=== PATIENT | male | born 1965 | race Caucasian/White ===

== ENCOUNTER → 2016-04-15 | Day surgery (SDC) | payer MEDICARE, OTHER ==
[~2016-04-15] VITALS: Ht 182.9 cm; Wt 79.4 kg
[~2016-04-15] MED LIST: ATOR1TAB21 PO; BACT800T5 PO; BUPIVACAINE HCL 0.5% 30 ML VIAL As Ordered ONE; BUPIVACAINE HCL 0.5% 30 ML VIAL XX ONE; CICL8KIT3 EX; CLEO300C2 PO; CLINDAMYCIN 600 MG in APPROPRIATE DILUENT 1 EA IV ONE; FISH1000 PO; FLUT1LOT EX; GLIM2TAB PO; HYDR1CRE TOP; HumaLOG INSULIN (NovoLOG) PER UNIT As Ordered ONE; HumaLOG INSULIN (NovoLOG) PER UNIT SC ONE; LEVA500T PO; LIDOCAINE 1% SDV INJ 30 ML VIAL As Ordered ONE; LIDOCAINE 1% SDV INJ 30 ML VIAL XX ONE; LISI-538 PO; LR 1,000 ML IV SCH; METF500T4 PO; MIDAZOLAM INJ 2 MG/2 ML VIAL (J2250) As Ordered ONE; ONDANSETRON 4MG/2ML VIAL (J2405) As Ordered ONE; ONDANSETRON 4MG/2ML VIAL (J2405) IV PRN; OXYC1TAB23 PO; PERCOCET 5MG/325MG TAB PO PRN; PROPOFOL 200 MG/20 ML VIAL As Ordered ONE; SILV-4 TOP; fentaNYL 100 MCG/2 ML INJECTION (J3010) As Ordered ONE
--- NOTE | 2016-04-15 10:50 | RO ---
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 PROCEDURE: Left hallux partial amputation. SURGEON: Dr. Michael Stover COMPUTER ARCHITECT: None. ANESTHESIA: Monitored anesthesia care. Preoperative injection of 20 mL of 1:1 mixture of 1% lidocaine plain and 1/2% Marcaine plain. ESTIMATED BLOOD LOSS: Minimal. MATERIALS: #3-0 nylon. INJECTABLES: 6 mL 1% lidocaine plain. COMPLICATIONS: None. CONDITION: Stable. SPECIMEN: Left hallux. DESCRIPTION OF PROCEDURE: Clayton Broussard is a 50-year-old male who presents to [facility] with chronic deformity to his left big toe with nonhealing ulceration to this site. He had similar deformity to his right hallux and had partial hallux amputation and has healed well with this. He elected to have the same procedure done to his left side. The patient site and side were identified and marked in the preoperative holding area. Consent was reviewed and obtained. All risks, complications and alternatives to the procedure were explained to the patient in detail. Questions were answered. The patient was brought to the operating room and placed on the operating room in supine position. Monitored anesthesia care was provided by the anesthesia team. Preoperative injection of 20 mL of 1:1 mixture of 1% lidocaine plain and 1/2% Marcaine plain were injected into the left foot. The patient received clindamycin preoperatively. The left foot was prepped and draped in normal sterile fashion. A tourniquet was applied to the left ankle and inflated at 250 mmHg. A racquet type incision was made over the left hallux with #15 blade and carried directly to the bone. Using a sagittal saw, the head of the proximal phalanx was resected and the remaining portion of the toe was disarticulated completely. This was sent for pathology. The site was irrigated with normal saline. Following this, closure was performed in the distal plantar skin proximally. This was sutured with #3-0 nylon. Sterile dressings were applied. Tourniquet was deflated. Patient was brought to the postanesthesia care unit (PACU) with vital signs stable and neurovascular status intact. He will be weight bearing as tolerated to the left foot. He will follow up in the office in two days.
[2016-04-15 11:20] VITALS: BP 162/80
== END | disposition home or self-care (01) ==
LOC: M SDC 08:12
PROVIDERS: ATTEND Podiatrist Foot & Ankle Surgery
DX: M20.32 Hallux varus (acquired), left foot (principal); E11.621 Type 2 diabetes mellitus with foot ulcer; E11.40 Type 2 diabetes mellitus with diabetic neuropathy, unspecified; B35.1 Tinea unguium; I10 Essential (primary) hypertension; E78.00 Pure hypercholesterolemia, unspecified; G89.29 Other chronic pain; M54.2 Cervicalgia; G62.9 Polyneuropathy, unspecified; J45.909 Unspecified asthma, uncomplicated; M12.9 Arthropathy, unspecified; F12.90 Cannabis use, unspecified, uncomplicated; Z88.0 Allergy status to penicillin; Z79.899 Other long term (current) drug therapy
CPT/HCPCS: 28160; 88304; 88311; J2250; J2405; J3010

== ENCOUNTER 2016-05-09 07:32 | Emergency (ER) | payer MEDICARE, OTHER ==
[~2016-05-09 07:32] MED LIST changes: -BUPIVACAINE HCL 0.5% 30 ML VIAL As Ordered ONE; -BUPIVACAINE HCL 0.5% 30 ML VIAL XX ONE; -CLINDAMYCIN 600 MG in APPROPRIATE DILUENT 1 EA IV ONE; -HumaLOG INSULIN (NovoLOG) PER UNIT As Ordered ONE; -HumaLOG INSULIN (NovoLOG) PER UNIT SC ONE; -LIDOCAINE 1% SDV INJ 30 ML VIAL As Ordered ONE; -LIDOCAINE 1% SDV INJ 30 ML VIAL XX ONE; -LR 1,000 ML IV SCH; -MIDAZOLAM INJ 2 MG/2 ML VIAL (J2250) As Ordered ONE; -ONDANSETRON 4MG/2ML VIAL (J2405) As Ordered ONE; -ONDANSETRON 4MG/2ML VIAL (J2405) IV PRN; -PERCOCET 5MG/325MG TAB PO PRN; -PROPOFOL 200 MG/20 ML VIAL As Ordered ONE; -fentaNYL 100 MCG/2 ML INJECTION (J3010) As Ordered ONE
[2016-05-09] MEDS ORDERED: ONDANSETRON 4 MG ORAL DISINTEGRATING TAB (S0181) As Ordered ONE (08:16)
[2016-05-09] MEDS ORDERED: MORPHINE 4 MG/ML 1ML SYRINGE As Ordered ONE ×3 (08:16→09:47)
[2016-05-09 09:40] LABS: INR 0.88
[2016-05-09 10:04] LABS: ANION GAP 12 MEQ/L (8-16); BLOOD UREA NITROGEN 15 MG/DL (7-18); CALCIUM LEVEL 8.9 MG/DL (8.5-10.1); CARBON DIOXIDE LEVEL 24 MEQ/L (21-32); CHLORIDE LEVEL 99 MEQ/L (98-107); CREATININE FOR GFR 1.27 MG/DL (0.70-1.30); GLOMERULAR FILTRATION RATE > 60.0 (>56); GLUCOSE, FASTING 317 MG/DL (70-105); POTASSIUM SERUM 4.1 MEQ/L (3.5-5.1); SODIUM LEVEL 135 MEQ/L (136-145)
[2016-05-09 10:06] LABS: MEAN CORPUSCULAR HEMOGLOBIN 28.6 pg (27.0-33.0); MEAN CORPUSCULAR HGB CONC 33.6 g/dl (32.0-36.5); RED CELL DISTRIBUTION WIDTH 12.9 % (11.5-14.5); WHITE BLOOD COUNT 17.6 K/mm3 (4.0-10.0)
[2016-05-09] MEDS ORDERED: HEPARIN SOD (PORCINE) 5000 UNITS/ML VIAL As Ordered ONE (10:16)
[2016-05-09] MEDS ORDERED: HEPARIN 25,000 UNITS/250 ML D5W BAG (100 UNITS/ML) As Ordered ONE (10:16)
--- NOTE | 2016-05-09 10:33 | EDDOCDS ---
Physician Documentation [facility] Name: Clayton Broussard Age: 51 yrs Sex: Male : 1965 Arrival Date: 05/09/2016 Time: 07:32 Bed 11 Private MD: Linnea Duran Disposition: 05/09 09:59 Critical Care:. pc Disposition: 05/09/16 10:02 Transfer ordered to [facility]. Diagnosis is Arterial embolism and thrombosis - RLE. - Reason for transfer: Higher level of care. - Accepting physician is Dr. Hsu. - Condition is Stable. - Problem is new. - Symptoms have improved. HPI: 08:49 This 51 yrs old Male presents to ER via Walkin/Carried/Asstd with complaints pc of Leg Pain. 08:49 The history is obtained from the patient, the patient's family/friend. He has severe pc PAD with stents in both legs. He had a right common iliac and right SFA stent placed in July 2015. He started to have pain in his right leg last night and is now having severe pain. The patient has experienced similar episodes in the past, several times. The patient has been recently seen by [facility] surgery. Historical: - Allergies: PENICILLINS; - Home Meds: 1. metformin 1,000 mg Oral tab 1 tab 2 times per day 2. Glucophage Oral daily 3. Lipitor Oral nightly 4. patient states he doesn't take his prescribed medications because he forgets "so I just gave up" 5. 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 - Social history: Smoking status: Patient uses tobacco products, light tobacco smoker. No barriers to communication noted, The patient speaks fluent Namibian, Speaks appropriately for age. - : The pt / caregiver states he / she is not on anticoagulants. Home medication list is obtained from the patient. - Hospitalizations: : No recent hospitalization is reported. - Exposure Risk Screening:: None identified. - Immunization history:: All immunizations up-to-date. - Family history: Not pertinent. - Social history:: the patient smokes cigarettes the patient does not drink alcohol. ROS: 08:55 All systems are negative except as listed. pc Exam: 08:55 General Appearance: alert, the patient is in mild distress. pc 08:55 Respiratory: no respiratory distress, normal breath sounds. 08:55 CVS: regular pulse rate, regular rhythm, normal S1 and S2, no murmurs, strong peripheral pulses. 08:55 Abdomen: soft, non-tender, no organomegaly, normal bowel sounds. 08:55 Skin: skin color is normal, warm, dry, a rash is located on the right femoral area, and can be described as pustular eruption on erythematous base . 08:55 Extremities: pulses not palpable in RLE. By Doppler, the femoral is decreased c. left, right popliteal decreased c. left, right DP/TP low rumble only, left loud, brisk. Right foot cool to touch over forefoot. Left great toe amputation incision with sutures in place, dry, clean. 08:55 Neuro: oriented x 3, cranial nerves normal as tested, paraesthesia of RLE . Vital Signs: 07:38 BP 207 / 97; Pulse 83; Resp 20; Temp 98.7(O); Pulse Ox 96% on R/A; Weight 81.65 kg / ck1 180.01 lbs (R); Height 6 ft. 0 in. (182.88 cm) (R); Pain 10/10; 09:08 BP 178 / 86; Pulse 86; Resp 16; Pulse Ox 96% on R/A; Pain 10/10; mlb1 09:46 BP 164 / 74; Pulse 80; Resp 16; Pulse Ox 97% on R/A; Pain 8/10; mlb1 10:26 BP 168 / 77; Pulse 94; Resp 16; Temp 100.0(TE); Pulse Ox 96% on R/A; Pain 8/10; mlb1 07:38 Body Mass Index 24.41 (81.65 kg, 182.88 cm) ck1 MDM: 08:14 Ondansetron ODT Oral Disintegrating Tablet 4 mg PO once ordered. pc 08:14 morphine 4 mg Sub-Q once ordered. pc 08:14 IV Saline Lock ordered. pc 08:38 CBC Ordered. EDMS 08:38 MED Profile Ordered. EDMS 08:58 Differential Diagnosis: arterial occlusion RLE. Plan: analgesia, transfer to [facility]. pc 09:01 [facility] Payment Agreement was scanned into [employer] and attached to record. jp5 09:01 Financial registration complete. jp5 09:01 morphine 4 mg IVP every 15 minutes; Document pain score/vitals after each dose (Hold if pc SBP < 90mmHg) x2 ordered. 09:02 Pt & Aptt Ordered. EDMS 09:47 Pt & Aptt Reviewed. pc 09:58 heparin 5000 units IVP once; No Lovenox in past 18hrs. Baseline labs. Max rec. dose pc [id number]. ordered. 09:58 heparin (Thrombolytic Protocol, 12 units/kg/hr)) 57615 units IV at 1000 units/hr once; pc Max. dose 1000units/hr. No Lovenox past 18hrs/ draw labs. ordered. 09:59 Data reviewed: old medical records, vital signs, nurses notes, lab test results. Test pc interpretation: LAB - all labs as ordered have been reviewed, interpreted and considered in the overall management of the clinical presentation;. The patient has been re-examined and re-evaluated. The patient's symptoms have mildly improved after treatment. Physician consultation: Dr. Hsu was contacted at 10:00, regarding patient's condition, and he requests the heparin as ordered and immediate transfer to [facility] ED. Disposition: The historical points, examination findings, and any diagnostic results supporting the provided diagnosis, were discussed with the patient or legal guardian. The decision to transfer to the patient to another facility was explained, based on the need for a required specialist that [facility] does not immediately have available. 10:12 CBC Reviewed. pc 10:12 MED Profile Reviewed. pc 10:15 Physician consultation: Dr. Mathews was contacted at 10:15, regarding patient's pc condition, and he accepts in transfer to [facility] ED. Administered Medications: 08:23 Drug: Ondansetron ODT 4 mg [ondansetron 4 mg disintegrating tablet (1 tabs)] Route: PO; mlb1 08:23 Drug: morphine 4 mg [morphine 4 mg/mL intravenous cartridge (1 mL)] Route: Sub-Q; Site: mlb1 right upper arm; 09:08 Follow up: BP 178 / 86; Pulse 86 bpm; Resp 16 bpm; Pulse Ox 96% RA; Pain 10/10 Adult; mlb1 Response: No significant change. 09:09 Drug: morphine 4 mg [morphine 4 mg/mL intravenous cartridge (1 mL)] Route: IVP; Site: mlb1 right upper arm; 09:46 Follow up: BP 164 / 74; Pulse 80 bpm; Resp 16 bpm; Pulse Ox 97% RA; Pain 8/10 Adult; mlb1 Response: No significant change. 09:50 Drug: morphine 4 mg [morphine 4 mg/mL intravenous cartridge (1 mL)] Route: IVP; Site: mlb1 right upper arm; 10:22 Drug: heparin 5000 units [heparin (porcine) 5,000 unit/mL injection solution (1 mL)] mlb1 {Co-Signature: [email or web address] (Alice Peterson RN).} Route: IVP; Site: right upper arm; 10:22 Drug: heparin (Thrombolytic Protocol, 12 units/kg/hr)) 35510 units [heparin (porcine) mlb1 25,000 unit/250 mL (100 unit/mL) in dextrose 5 % IV] {Co-Signature: torrey (Alice Peterson RN).} Route: IV; Rate: 1000 units/hr; Site: right upper arm; Critical Care Time: 09:59 Critical care time: Bedside Care: 25 minutes, Consultation: 15 minutes, Family pc Intervention: 15 minutes. Total time: 55 minutes Signatures: Dispatcher [employer] Amadou Arellano MD MD pc Barney, Michael B RN RN mlb1 Cande AnneRN RN ck1 Camryn East jp5 Alice Peterson RN jo3 The chart was reviewed and I authenticate all verbal orders and agree with the evaluation and treatment provided.Corrections: (The following items were deleted from the chart) 10:13 08:55 Skin: skin color is normal, warm, dry, pc pc 10:15 09:59 Physician consultation: Dr. Hsu was contacted at 10:00, regarding need to pc come to ED to see patient, and he requests the heparin as ordered and immediate transfer to [facility] ED, pc Attachments: 09:01 [facility] Payment Agreement jp5 MTDD
--- NOTE | 2016-05-09 10:33 | EDDOCDS ---
Nurse's Notes [facility] Name: Clayton Broussard Age: 51 yrs Sex: Male : 1965 Arrival Date: 05/09/2016 Time: 07:32 Bed 11 Private MD: Linnea Duran Diagnosis: Arterial embolism and thrombosis-RLE Presentation: 05/09 07:37 Presenting complaint: Patient states: Worsening pain in right leg since yesterday, no ck1 known injury. Reports having "four stents" in that leg, feels like a knot in right inner thigh. Adult Sepsis Screening: The patient does not have new or worsening altered mentation. Patient has a respiratory rate of greater than or equal to 22 (1 point). Systolic blood pressure is less than or equal to 100 (1 point). Patient has a qSOFA score of 0- Negative Sepsis Screen. Suicide/Homicide risk assessment- the patient denies having any suicidal and/or homicidal ideations and does not present with any other emotional, behavioral or mental health complaints. Status: Patient is not a custodial services manager or dependent. Transition of care: patient was not received from another setting of care. 07:37 Method Of Arrival: Walkin/Carried/Asstd ck1 07:37 Acuity: TREVA Level 3 ck1 Triage Assessment: 07:44 General: Appears in no apparent distress, comfortable, Behavior is appropriate for age, ck1 cooperative. Pain: Location: right leg Pain currently is 10 out of 10 on a pain scale. HIV screening NA for this visit Offered previously. Neurological: Level of Consciousness is awake, alert, obeys commands, Oriented to person, place, time. Respiratory: Respiratory effort is unlabored, Respiratory pattern is regular, symmetrical. Derm: Skin is intact, Skin is pink, warm & dry. Musculoskeletal: Range of motion intact in all extremities. Historical: - Allergies: PENICILLINS; - Home Meds: 1. metformin 1,000 mg Oral tab 1 tab 2 times per day 2. Glucophage Oral daily 3. Lipitor Oral nightly 4. patient states he doesn't take his prescribed medications because he forgets "so I just gave up" 5. 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 - Social history: Smoking status: Patient uses tobacco products, light tobacco smoker. No barriers to communication noted, The patient speaks fluent Pakistani, Speaks appropriately for age. - : The pt / caregiver states he / she is not on anticoagulants. Home medication list is obtained from the patient. - Hospitalizations: : No recent hospitalization is reported. - Exposure Risk Screening:: None identified. - Immunization history:: All immunizations up-to-date. - Family history: Not pertinent. - Social history:: the patient smokes cigarettes the patient does not drink alcohol. Screenin:55 Screening information is obtained from the patient. Fall risk: No risks identified. mlb1 Assistance ADL's: requires no assistance with activities of daily living. Abuse/DV Screen: The patient / caregiver reports he/she is: not in a situation that causes fear, pain or injury. Nutritional screening: No deficits noted. Advance Directives: Currently, there is no health care proxy. There is no active DNR order. There is no living will. home support is adequate. Assessment: 08:40 General: Appears in no apparent distress, Behavior is appropriate for age, cooperative. mlb1 Pain: Location: right leg Pain currently is 10 out of 10 on a pain scale. Cardiovascular: Pulses diminished in right leg and foot obtained with Doppler. 09:46 General: Appears in no apparent distress, Behavior is appropriate for age, cooperative. mlb1 Pain: Location: right leg Pain currently is 8 out of 10 on a pain scale. Neurological: No deficits noted. Respiratory: No deficits noted. 10:27 General: Appears in no apparent distress, Behavior is appropriate for age, cooperative. mlb1 Pain: Location: right leg Pain currently is 8 out of 10 on a pain scale. Neurological: No deficits noted. Respiratory: No deficits noted. Derm: No deficits noted. Vital Signs: 07:38 BP 207 / 97; Pulse 83; Resp 20; Temp 98.7(O); Pulse Ox 96% on R/A; Weight 81.65 kg (R); ck1 Height 6 ft. 0 in. (182.88 cm) (R); Pain 10/10; 09:08 BP 178 / 86; Pulse 86; Resp 16; Pulse Ox 96% on R/A; Pain 10/10; mlb1 09:46 BP 164 / 74; Pulse 80; Resp 16; Pulse Ox 97% on R/A; Pain 8/10; mlb1 10:26 BP 168 / 77; Pulse 94; Resp 16; Temp 100.0(TE); Pulse Ox 96% on R/A; Pain 8/10; mlb1 07:38 Body Mass Index 24.41 (81.65 kg, 182.88 cm) ck1 Vitals: 07:38 Log In Time: May 09, 2016 at 07:30. ck1 ED Course: 07:33 Patient visited by Hailee Carroll. mm15 07:33 Patient moved to Waiting mm15 07:34 Linnea Duran is Private Physician. mm15 07:38 Triage Initiated ck1 07:45 Patient moved to 11 ck1 08:13 Amadou Mason MD is Attending Physician. pc 08:15 Patient visited by Amadou Mason MD. pc 08:42 Patient visited by James Ordaz, RAFFY. mlb1 08:42 Inserted saline lock: 22 gauge in right upper arm. mlb1 08:56 The patient / caregiver is instructed regarding the plan of care and ED course. mlb1 Accompanied by Family Member, Placed in gown. Bed in low position. Call light in reach. Side rails up X2. 09:01 [facility] Payment Agreement was scanned into [employer] and attached to record. jp5 09:46 Patient visited by James Ordaz, RN. mlb1 10:06 No procedures done that require assistance. mlb1 10:33 Patient visited by James Ordaz, RN. mlb1 Administered Medications: 08:23 Drug: Ondansetron ODT 4 mg [ondansetron 4 mg disintegrating tablet (1 tabs)] Route: PO; mlb1 08:23 Drug: morphine 4 mg [morphine 4 mg/mL intravenous cartridge (1 mL)] Route: Sub-Q; Site: b1 right upper arm; 09:08 Follow up: BP 178 / 86; Pulse 86 bpm; Resp 16 bpm; Pulse Ox 96% RA; Pain 10/10 Adult; mlb1 Response: No significant change. 09:09 Drug: morphine 4 mg [morphine 4 mg/mL intravenous cartridge (1 mL)] Route: IVP; Site: [facility] right upper arm; 09:46 Follow up: BP 164 / 74; Pulse 80 bpm; Resp 16 bpm; Pulse Ox 97% RA; Pain 8/10 Adult; mlb1 Response: No significant change. 09:50 Drug: morphine 4 mg [morphine 4 mg/mL intravenous cartridge (1 mL)] Route: IVP; Site: mlb1 right upper arm; 10:22 Drug: heparin 5000 units [heparin (porcine) 5,000 unit/mL injection solution (1 mL)] mlb1 {Co-Signature: torrey (Alice Peterson RN).} Route: IVP; Site: right upper arm; 10:22 Drug: heparin (Thrombolytic Protocol, 12 units/kg/hr)) 72203 units [heparin (porcine) mlb1 25,000 unit/250 mL (100 unit/mL) in dextrose 5 % IV] {Co-Signature: torrey (Alice Peterson RN).} Route: IV; Rate: 1000 units/hr; Site: right upper arm; Order Results: Lab Order: CBC; SPEC'M 05/09/16 09:25 Test: WHITE BLOOD COUNT; Value: 17.6; Range: 4.0-10.0; Abnormal: Above high normal; Units: K/mm3; Status: F Test: RED BLOOD COUNT; Value: 4.71; Range: 4.30-6.10; Units: M/mm3; Status: F Test: HEMOGLOBIN; Value: 13.5; Range: 14.0-18.0; Abnormal: Below low normal; Units: g/dl; Status: F Test: HEMATOCRIT; Value: 40.0; Range: 42.0-52.0; Abnormal: Below low normal; Units: %; Status: F Test: MEAN CORPUSCULAR VOLUME; Value: 85.0; Range: 80.0-96.0; Units: fl; Status: F Test: MEAN CORPUSCULAR HEMOGLOBIN; Value: 28.6; Range: 27.0-33.0; Units: pg; Status: F Test: MEAN CORPUSCULAR HGB CONC; Value: 33.6; Range: 32.0-36.5; Units: g/dl; Status: F Test: RED CELL DISTRIBUTION WIDTH; Value: 12.9; Range: 11.5-14.5; Units: %; Status: F Test: PLATELET COUNT, AUTOMATED; Value: 201; Range: 150-450; Units: k/mm3; Status: F Lab Order: MED Profile; [facility]05/09/16 09:25 Test: GLUCOSE, FASTING; Value: 317; Range: 70-105; Abnormal: Above high normal; Units: MG/DL; Status: F Test: BLOOD UREA NITROGEN; Value: 15; Range: 7-18; Units: MG/DL; Status: F Test: CREATININE FOR GFR; Value: 1.27; Range: 0.70-1.30; Units: MG/DL; Status: F Test: GLOMERULAR FILTRATION RATE; Value: > 60.0; Range: >56; Status: F Test: SODIUM LEVEL; Value: 135; Range: 136-145; Abnormal: Below low normal; Units: MEQ/L; Status: F Test: POTASSIUM SERUM; Value: 4.1; Range: 3.5-5.1; Units: MEQ/L; Status: F Test: CHLORIDE LEVEL; Value: 99; Range: 98-107; Units: MEQ/L; Status: F Test: CARBON DIOXIDE LEVEL; Value: 24; Range: 21-32; Units: MEQ/L; Status: F Test: ANION GAP; Value: 12; Range: 8-16; Units: MEQ/L; Status: F Test: CALCIUM LEVEL; Value: 8.9; Range: 8.5-10.1; Units: MG/DL; Status: F Test Note: ; Units are mL/min/1.73 m2 Chronic Kidney Disease Staging per NKF: Stage I & II GFR >=60 Normal to Mildly Decreased Stage III GFR 30-59 Moderately Decreased Stage IV GFR 15-29 Severely Decreased Stage V GFR <15 Very Little GFR Left ESRD GFR <15 on REPAIR [employer]OR [employer]SEMBLER Lab Order: Pt & Aptt; [facility]05/09/16 09:25 Test: PROTHROMBIN TIME; Value: 12.0; Range: 12.3-14.5; Abnormal: Below low normal; Units: SECONDS; Status: F Test: INR; Value: 0.88; Status: F Test: PARTIAL THROMBOPLASTIN TIME; Value: 29.6; Range: 26.6-37.1; Units: SECONDS; Status: F Test Note: ; THERAPUTIC HUMAN INR VALUES INDICATIONS NORMAL RANGES PROPHYLAXIS/TREATMENT OF: VENOUS THROMBOSIS 2.0-3.0 PULMONARY EMBOLISM 2.0-3.0 PREVENTION OF SYSTEMIC EMBOLISM FROM: TISSUE HEART VALVES 2.0-3.0 ACUTE MYOCARDIAL INFARCTION 2.0-3.0 VALVULAR HEART DISEASE 2.0-3.0 ATRIAL FIBRILLATION 2.0-3.0 MECHANICAL VALVES(HIGH RISK) 2.5-3.5 RECURRENT MYOCARDIAL INFARCTION 2.5-3.5 Outcome: 10:02 ER care complete, transfer ordered by Provider. pc 10:27 Discharge Assessment: Patient awake, alert and oriented x 3. No cognitive and/or mlb1 functional deficits noted. Patient verbalized understanding of disposition instructions. patient administered narcotics - yes. Patient was admitted to the hospital or transferred to another facility. The following High Risk Discharge criteria are identified: None. Transferred to [facility]. by EMS ground [facility] ambulance report to accompanying personnel Marcellus Rodriguez. Transferred Transfer form completed. Condition: stable. No special radiology studies were completed. Property :Personal belongings accompany Pt. 10:33 Patient left the ED. mlb1 Signatures: Amadou Mason MD MD James Ordaz RN RN mlb1 Cande AnneRN RN ck1 Hailee Carroll mm15 Camryn East jp5 Alice Peterson RN jo3 Corrections: (The following items were deleted from the chart) 07:53 07:37 Presenting complaint: Patient states: Worsening pain in right leg since ck1 yesterday, no known injury. Reports having "four stents" in that leg, feels like a knot in right inner thigh ck1 08:04 08:01 Cardiovascular: Pulses mlb1 mlb1 MTDD
--- NOTE | 2016-05-11 11:34 | EDDOCDS ---
Physician Documentation [facility] Name: Clayton Broussard Age: 51 yrs Sex: Male : 1965 Arrival Date: 05/09/2016 Time: 07:32 Bed 11 Private MD: Linnea Duran Disposition: 05/09 09:59 Critical Care:. pc Disposition: 05/09/16 10:02 Transfer ordered to [facility]. Diagnosis is Arterial embolism and thrombosis - RLE. - Reason for transfer: Higher level of care. - Accepting physician is Dr. Hsu. - Condition is Stable. - Problem is new. - Symptoms have improved. HPI: 08:49 This 51 yrs old Male presents to ER via Walkin/Carried/Asstd with complaints pc of Leg Pain. 08:49 The history is obtained from the patient, the patient's family/friend. He has severe pc PAD with stents in both legs. He had a right common iliac and right SFA stent placed in July 2015. He started to have pain in his right leg last night and is now having severe pain. The patient has experienced similar episodes in the past, several times. The patient has been recently seen by [facility] surgery. Historical: - Allergies: PENICILLINS; - Home Meds: 1. metformin 1,000 mg Oral tab 1 tab 2 times per day 2. Glucophage Oral daily 3. Lipitor Oral nightly 4. patient states he doesn't take his prescribed medications because he forgets "so I just gave up" 5. 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 - Social history: Smoking status: Patient uses tobacco products, light tobacco smoker. No barriers to communication noted, The patient speaks fluent Ecuadorean, Speaks appropriately for age. - : The pt / caregiver states he / she is not on anticoagulants. Home medication list is obtained from the patient. - Hospitalizations: : No recent hospitalization is reported. - Exposure Risk Screening:: None identified. - Immunization history:: All immunizations up-to-date. - Family history: Not pertinent. - Social history:: the patient smokes cigarettes the patient does not drink alcohol. ROS: 08:55 All systems are negative except as listed. pc Exam: 08:55 General Appearance: alert, the patient is in mild distress. pc 08:55 Respiratory: no respiratory distress, normal breath sounds. 08:55 CVS: regular pulse rate, regular rhythm, normal S1 and S2, no murmurs, strong peripheral pulses. 08:55 Abdomen: soft, non-tender, no organomegaly, normal bowel sounds. 08:55 Skin: skin color is normal, warm, dry, a rash is located on the right femoral area, and can be described as pustular eruption on erythematous base . 08:55 Extremities: pulses not palpable in RLE. By Doppler, the femoral is decreased c. left, right popliteal decreased c. left, right DP/TP low rumble only, left loud, brisk. Right foot cool to touch over forefoot. Left great toe amputation incision with sutures in place, dry, clean. 08:55 Neuro: oriented x 3, cranial nerves normal as tested, paraesthesia of RLE . Vital Signs: 07:38 BP 207 / 97; Pulse 83; Resp 20; Temp 98.7(O); Pulse Ox 96% on R/A; Weight 81.65 kg / ck1 180.01 lbs (R); Height 6 ft. 0 in. (182.88 cm) (R); Pain 10/10; 09:08 BP 178 / 86; Pulse 86; Resp 16; Pulse Ox 96% on R/A; Pain 10/10; mlb1 09:46 BP 164 / 74; Pulse 80; Resp 16; Pulse Ox 97% on R/A; Pain 8/10; mlb1 10:26 BP 168 / 77; Pulse 94; Resp 16; Temp 100.0(TE); Pulse Ox 96% on R/A; Pain 8/10; mlb1 07:38 Body Mass Index 24.41 (81.65 kg, 182.88 cm) ck1 MDM: 08:14 Ondansetron ODT Oral Disintegrating Tablet 4 mg PO once ordered. pc 08:14 morphine 4 mg Sub-Q once ordered. pc 08:14 IV Saline Lock ordered. pc 08:38 CBC Ordered. EDMS 08:38 MED Profile Ordered. EDMS 08:58 Differential Diagnosis: arterial occlusion RLE. Plan: analgesia, transfer to [facility]. pc 09:01 [facility] Payment Agreement was scanned into [employer] and attached to record. jp5 09:01 Financial registration complete. jp5 09:01 morphine 4 mg IVP every 15 minutes; Document pain score/vitals after each dose (Hold if pc SBP < 90mmHg) x2 ordered. 09:02 Pt & Aptt Ordered. EDMS 09:47 Pt & Aptt Reviewed. pc 09:58 heparin 5000 units IVP once; No Lovenox in past 18hrs. Baseline labs. Max rec. dose pc [id number]. ordered. 09:58 heparin (Thrombolytic Protocol, 12 units/kg/hr)) 38940 units IV at 1000 units/hr once; pc Max. dose 1000units/hr. No Lovenox past 18hrs/ draw labs. ordered. 09:59 Data reviewed: old medical records, vital signs, nurses notes, lab test results. Test pc interpretation: LAB - all labs as ordered have been reviewed, interpreted and considered in the overall management of the clinical presentation;. The patient has been re-examined and re-evaluated. The patient's symptoms have mildly improved after treatment. Physician consultation: Dr. Hsu was contacted at 10:00, regarding patient's condition, and he requests the heparin as ordered and immediate transfer to [facility] ED. Disposition: The historical points, examination findings, and any diagnostic results supporting the provided diagnosis, were discussed with the patient or legal guardian. The decision to transfer to the patient to another facility was explained, based on the need for a required specialist that [facility] does not immediately have available. 10:12 CBC Reviewed. pc 10:12 MED Profile Reviewed. pc 10:15 Physician consultation: Dr. Mathews was contacted at 10:15, regarding patient's pc condition, and he accepts in transfer to [facility] ED. Administered Medications: 08:23 Drug: Ondansetron ODT 4 mg [ondansetron 4 mg disintegrating tablet (1 tabs)] Route: PO; mlb1 08:23 Drug: morphine 4 mg [morphine 4 mg/mL intravenous cartridge (1 mL)] Route: Sub-Q; Site: mlb1 right upper arm; 09:08 Follow up: BP 178 / 86; Pulse 86 bpm; Resp 16 bpm; Pulse Ox 96% RA; Pain 10/10 Adult; mlb1 Response: No significant change. 09:09 Drug: morphine 4 mg [morphine 4 mg/mL intravenous cartridge (1 mL)] Route: IVP; Site: mlb1 right upper arm; 09:46 Follow up: BP 164 / 74; Pulse 80 bpm; Resp 16 bpm; Pulse Ox 97% RA; Pain 8/10 Adult; mlb1 Response: No significant change. 09:50 Drug: morphine 4 mg [morphine 4 mg/mL intravenous cartridge (1 mL)] Route: IVP; Site: mlb1 right upper arm; 10:22 Drug: heparin 5000 units [heparin (porcine) 5,000 unit/mL injection solution (1 mL)] mlb1 {Co-Signature: [email or web address] (Alice Peterson RN).} Route: IVP; Site: right upper arm; 10:22 Drug: heparin (Thrombolytic Protocol, 12 units/kg/hr)) 34560 units [heparin (porcine) mlb1 25,000 unit/250 mL (100 unit/mL) in dextrose 5 % IV] {Co-Signature: torrey (Alice Peterson RN).} Route: IV; Rate: 1000 units/hr; Site: right upper arm; Critical Care Time: 09:59 Critical care time: Bedside Care: 25 minutes, Consultation: 15 minutes, Family pc Intervention: 15 minutes. Total time: 55 minutes Signatures: Dispatcher [employer] Amadou Arellano MD MD pc Barney, Michael B RN RN mlb1 Cande AnneRN RN ck1 Camryn East jp5 Alice Peterson RN jo3 The chart was reviewed and I authenticate all verbal orders and agree with the evaluation and treatment provided.Corrections: (The following items were deleted from the chart) 10:13 08:55 Skin: skin color is normal, warm, dry, pc pc 10:15 09:59 Physician consultation: Dr. Hsu was contacted at 10:00, regarding need to pc come to ED to see patient, and he requests the heparin as ordered and immediate transfer to [facility] ED, pc Attachments: 09:01 [facility] Payment Agreement jp5 Chart Complete MTDD
--- NOTE | 2016-05-11 11:34 | EDDOCDS ---
Physician Documentation [facility] Name: Clayton Broussard Age: 51 yrs Sex: Male : 1965 Arrival Date: 05/09/2016 Time: 07:32 Bed 11 Private MD: Linnea Duran Disposition: 05/09 09:59 Critical Care:. pc Disposition: 05/09/16 10:02 Transfer ordered to [facility]. Diagnosis is Arterial embolism and thrombosis - RLE. - Reason for transfer: Higher level of care. - Accepting physician is Dr. Hsu. - Condition is Stable. - Problem is new. - Symptoms have improved. HPI: 08:49 This 51 yrs old Male presents to ER via Walkin/Carried/Asstd with complaints pc of Leg Pain. 08:49 The history is obtained from the patient, the patient's family/friend. He has severe pc PAD with stents in both legs. He had a right common iliac and right SFA stent placed in July 2015. He started to have pain in his right leg last night and is now having severe pain. The patient has experienced similar episodes in the past, several times. The patient has been recently seen by [facility] surgery. Historical: - Allergies: PENICILLINS; - Home Meds: 1. metformin 1,000 mg Oral tab 1 tab 2 times per day 2. Glucophage Oral daily 3. Lipitor Oral nightly 4. patient states he doesn't take his prescribed medications because he forgets "so I just gave up" 5. 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 - Social history: Smoking status: Patient uses tobacco products, light tobacco smoker. No barriers to communication noted, The patient speaks fluent Venezuelan, Speaks appropriately for age. - : The pt / caregiver states he / she is not on anticoagulants. Home medication list is obtained from the patient. - Hospitalizations: : No recent hospitalization is reported. - Exposure Risk Screening:: None identified. - Immunization history:: All immunizations up-to-date. - Family history: Not pertinent. - Social history:: the patient smokes cigarettes the patient does not drink alcohol. ROS: 08:55 All systems are negative except as listed. pc Exam: 08:55 General Appearance: alert, the patient is in mild distress. pc 08:55 Respiratory: no respiratory distress, normal breath sounds. 08:55 CVS: regular pulse rate, regular rhythm, normal S1 and S2, no murmurs, strong peripheral pulses. 08:55 Abdomen: soft, non-tender, no organomegaly, normal bowel sounds. 08:55 Skin: skin color is normal, warm, dry, a rash is located on the right femoral area, and can be described as pustular eruption on erythematous base . 08:55 Extremities: pulses not palpable in RLE. By Doppler, the femoral is decreased c. left, right popliteal decreased c. left, right DP/TP low rumble only, left loud, brisk. Right foot cool to touch over forefoot. Left great toe amputation incision with sutures in place, dry, clean. 08:55 Neuro: oriented x 3, cranial nerves normal as tested, paraesthesia of RLE . Vital Signs: 07:38 BP 207 / 97; Pulse 83; Resp 20; Temp 98.7(O); Pulse Ox 96% on R/A; Weight 81.65 kg / ck1 180.01 lbs (R); Height 6 ft. 0 in. (182.88 cm) (R); Pain 10/10; 09:08 BP 178 / 86; Pulse 86; Resp 16; Pulse Ox 96% on R/A; Pain 10/10; mlb1 09:46 BP 164 / 74; Pulse 80; Resp 16; Pulse Ox 97% on R/A; Pain 8/10; mlb1 10:26 BP 168 / 77; Pulse 94; Resp 16; Temp 100.0(TE); Pulse Ox 96% on R/A; Pain 8/10; mlb1 07:38 Body Mass Index 24.41 (81.65 kg, 182.88 cm) ck1 MDM: 08:14 Ondansetron ODT Oral Disintegrating Tablet 4 mg PO once ordered. pc 08:14 morphine 4 mg Sub-Q once ordered. pc 08:14 IV Saline Lock ordered. pc 08:38 CBC Ordered. EDMS 08:38 MED Profile Ordered. EDMS 08:58 Differential Diagnosis: arterial occlusion RLE. Plan: analgesia, transfer to [facility]. pc 09:01 [facility] Payment Agreement was scanned into [employer] and attached to record. jp5 09:01 Financial registration complete. jp5 09:01 morphine 4 mg IVP every 15 minutes; Document pain score/vitals after each dose (Hold if pc SBP < 90mmHg) x2 ordered. 09:02 Pt & Aptt Ordered. EDMS 09:47 Pt & Aptt Reviewed. pc 09:58 heparin 5000 units IVP once; No Lovenox in past 18hrs. Baseline labs. Max rec. dose pc [id number]. ordered. 09:58 heparin (Thrombolytic Protocol, 12 units/kg/hr)) 22851 units IV at 1000 units/hr once; pc Max. dose 1000units/hr. No Lovenox past 18hrs/ draw labs. ordered. 09:59 Data reviewed: old medical records, vital signs, nurses notes, lab test results. Test pc interpretation: LAB - all labs as ordered have been reviewed, interpreted and considered in the overall management of the clinical presentation;. The patient has been re-examined and re-evaluated. The patient's symptoms have mildly improved after treatment. Physician consultation: Dr. Hsu was contacted at 10:00, regarding patient's condition, and he requests the heparin as ordered and immediate transfer to [facility] ED. Disposition: The historical points, examination findings, and any diagnostic results supporting the provided diagnosis, were discussed with the patient or legal guardian. The decision to transfer to the patient to another facility was explained, based on the need for a required specialist that [facility] does not immediately have available. 10:12 CBC Reviewed. pc 10:12 MED Profile Reviewed. pc 10:15 Physician consultation: Dr. Mathews was contacted at 10:15, regarding patient's pc condition, and he accepts in transfer to [facility] ED. Administered Medications: 08:23 Drug: Ondansetron ODT 4 mg [ondansetron 4 mg disintegrating tablet (1 tabs)] Route: PO; mlb1 08:23 Drug: morphine 4 mg [morphine 4 mg/mL intravenous cartridge (1 mL)] Route: Sub-Q; Site: mlb1 right upper arm; 09:08 Follow up: BP 178 / 86; Pulse 86 bpm; Resp 16 bpm; Pulse Ox 96% RA; Pain 10/10 Adult; mlb1 Response: No significant change. 09:09 Drug: morphine 4 mg [morphine 4 mg/mL intravenous cartridge (1 mL)] Route: IVP; Site: mlb1 right upper arm; 09:46 Follow up: BP 164 / 74; Pulse 80 bpm; Resp 16 bpm; Pulse Ox 97% RA; Pain 8/10 Adult; mlb1 Response: No significant change. 09:50 Drug: morphine 4 mg [morphine 4 mg/mL intravenous cartridge (1 mL)] Route: IVP; Site: mlb1 right upper arm; 10:22 Drug: heparin 5000 units [heparin (porcine) 5,000 unit/mL injection solution (1 mL)] mlb1 {Co-Signature: [email or web address] (Alice Peterson RN).} Route: IVP; Site: right upper arm; 10:22 Drug: heparin (Thrombolytic Protocol, 12 units/kg/hr)) 87336 units [heparin (porcine) mlb1 25,000 unit/250 mL (100 unit/mL) in dextrose 5 % IV] {Co-Signature: torrey (Alice Peterson RN).} Route: IV; Rate: 1000 units/hr; Site: right upper arm; Critical Care Time: 09:59 Critical care time: Bedside Care: 25 minutes, Consultation: 15 minutes, Family pc Intervention: 15 minutes. Total time: 55 minutes Signatures: Dispatcher [employer] Amadou Arellano MD MD pc Barney, Michael B RN RN mlb1 Cande AnneRN RN ck1 Camryn East jp5 Alice Peterson RN jo3 The chart was reviewed and I authenticate all verbal orders and agree with the evaluation and treatment provided.Corrections: (The following items were deleted from the chart) 10:13 08:55 Skin: skin color is normal, warm, dry, pc pc 10:15 09:59 Physician consultation: Dr. Hus was contacted at 10:00, regarding need to pc come to ED to see patient, and he requests the heparin as ordered and immediate transfer to [facility] ED, pc Attachments: 09:01 [facility] Payment Agreement jp5 Chart Complete MTDD
--- NOTE | 2016-05-11 11:35 | EDDOCDS ---
Nurse's Notes [facility] Name: Clayton Broussard Age: 51 yrs Sex: Male : 1965 Arrival Date: 05/09/2016 Time: 07:32 Bed 11 Private MD: Linnea Duran Diagnosis: Arterial embolism and thrombosis-RLE Presentation: 05/09 07:37 Presenting complaint: Patient states: Worsening pain in right leg since yesterday, no ck1 known injury. Reports having "four stents" in that leg, feels like a knot in right inner thigh. Adult Sepsis Screening: The patient does not have new or worsening altered mentation. Patient has a respiratory rate of greater than or equal to 22 (1 point). Systolic blood pressure is less than or equal to 100 (1 point). Patient has a qSOFA score of 0- Negative Sepsis Screen. Suicide/Homicide risk assessment- the patient denies having any suicidal and/or homicidal ideations and does not present with any other emotional, behavioral or mental health complaints. Status: Patient is not a central service supply distributor or dependent. Transition of care: patient was not received from another setting of care. 07:37 Method Of Arrival: Walkin/Carried/Asstd ck1 07:37 Acuity: TREVA Level 3 ck1 Triage Assessment: 07:44 General: Appears in no apparent distress, comfortable, Behavior is appropriate for age, ck1 cooperative. Pain: Location: right leg Pain currently is 10 out of 10 on a pain scale. HIV screening NA for this visit Offered previously. Neurological: Level of Consciousness is awake, alert, obeys commands, Oriented to person, place, time. Respiratory: Respiratory effort is unlabored, Respiratory pattern is regular, symmetrical. Derm: Skin is intact, Skin is pink, warm & dry. Musculoskeletal: Range of motion intact in all extremities. Historical: - Allergies: PENICILLINS; - Home Meds: 1. metformin 1,000 mg Oral tab 1 tab 2 times per day 2. Glucophage Oral daily 3. Lipitor Oral nightly 4. patient states he doesn't take his prescribed medications because he forgets "so I just gave up" 5. 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 - Social history: Smoking status: Patient uses tobacco products, light tobacco smoker. No barriers to communication noted, The patient speaks fluent Estonian, Speaks appropriately for age. - : The pt / caregiver states he / she is not on anticoagulants. Home medication list is obtained from the patient. - Hospitalizations: : No recent hospitalization is reported. - Exposure Risk Screening:: None identified. - Immunization history:: All immunizations up-to-date. - Family history: Not pertinent. - Social history:: the patient smokes cigarettes the patient does not drink alcohol. Screenin:55 Screening information is obtained from the patient. Fall risk: No risks identified. mlb1 Assistance ADL's: requires no assistance with activities of daily living. Abuse/DV Screen: The patient / caregiver reports he/she is: not in a situation that causes fear, pain or injury. Nutritional screening: No deficits noted. Advance Directives: Currently, there is no health care proxy. There is no active DNR order. There is no living will. home support is adequate. Assessment: 08:40 General: Appears in no apparent distress, Behavior is appropriate for age, cooperative. mlb1 Pain: Location: right leg Pain currently is 10 out of 10 on a pain scale. Cardiovascular: Pulses diminished in right leg and foot obtained with Doppler. 09:46 General: Appears in no apparent distress, Behavior is appropriate for age, cooperative. mlb1 Pain: Location: right leg Pain currently is 8 out of 10 on a pain scale. Neurological: No deficits noted. Respiratory: No deficits noted. 10:27 General: Appears in no apparent distress, Behavior is appropriate for age, cooperative. mlb1 Pain: Location: right leg Pain currently is 8 out of 10 on a pain scale. Neurological: No deficits noted. Respiratory: No deficits noted. Derm: No deficits noted. Vital Signs: 07:38 BP 207 / 97; Pulse 83; Resp 20; Temp 98.7(O); Pulse Ox 96% on R/A; Weight 81.65 kg (R); ck1 Height 6 ft. 0 in. (182.88 cm) (R); Pain 10/10; 09:08 BP 178 / 86; Pulse 86; Resp 16; Pulse Ox 96% on R/A; Pain 10/10; mlb1 09:46 BP 164 / 74; Pulse 80; Resp 16; Pulse Ox 97% on R/A; Pain 8/10; mlb1 10:26 BP 168 / 77; Pulse 94; Resp 16; Temp 100.0(TE); Pulse Ox 96% on R/A; Pain 8/10; mlb1 07:38 Body Mass Index 24.41 (81.65 kg, 182.88 cm) ck1 Vitals: 07:38 Log In Time: May 09, 2016 at 07:30. ck1 ED Course: 07:33 Patient visited by Hailee Carroll. mm15 07:33 Patient moved to Waiting mm15 07:34 Linnea Duran is Private Physician. mm15 07:38 Triage Initiated ck1 07:45 Patient moved to 11 ck1 08:13 Amadou aMson MD is Attending Physician. pc 08:15 Patient visited by Amadou Mason MD. pc 08:42 Patient visited by James Ordaz, RAFFY. mlb1 08:42 Inserted saline lock: 22 gauge in right upper arm. mlb1 08:56 The patient / caregiver is instructed regarding the plan of care and ED course. mlb1 Accompanied by Family Member, Placed in gown. Bed in low position. Call light in reach. Side rails up X2. 09:01 [facility] Payment Agreement was scanned into [employer] [employer] [facility] and attached to record. jp5 09:46 Patient visited by James Odraz, RN. mlb1 10:06 No procedures done that require assistance. mlb1 10:33 Patient visited by James Ordaz, RN. mlb1 Administered Medications: 08:23 Drug: Ondansetron ODT 4 mg [ondansetron 4 mg disintegrating tablet (1 tabs)] Route: PO; mlb1 08:23 Drug: morphine 4 mg [morphine 4 mg/mL intravenous cartridge (1 mL)] Route: Sub-Q; Site: b1 right upper arm; 09:08 Follow up: BP 178 / 86; Pulse 86 bpm; Resp 16 bpm; Pulse Ox 96% RA; Pain 10/10 Adult; mlb1 Response: No significant change. 09:09 Drug: morphine 4 mg [morphine 4 mg/mL intravenous cartridge (1 mL)] Route: IVP; Site: [facility] right upper arm; 09:46 Follow up: BP 164 / 74; Pulse 80 bpm; Resp 16 bpm; Pulse Ox 97% RA; Pain 8/10 Adult; mlb1 Response: No significant change. 09:50 Drug: morphine 4 mg [morphine 4 mg/mL intravenous cartridge (1 mL)] Route: IVP; Site: mlb1 right upper arm; 10:22 Drug: heparin 5000 units [heparin (porcine) 5,000 unit/mL injection solution (1 mL)] mlb1 {Co-Signature: torrey (Alice Peterson RN).} Route: IVP; Site: right upper arm; 10:22 Drug: heparin (Thrombolytic Protocol, 12 units/kg/hr)) 86703 units [heparin (porcine) mlb1 25,000 unit/250 mL (100 unit/mL) in dextrose 5 % IV] {Co-Signature: torrey (Alice Peterson RN).} Route: IV; Rate: 1000 units/hr; Site: right upper arm; Order Results: Lab Order: CBC; SPEC'M 05/09/16 09:25 Test: WHITE BLOOD COUNT; Value: 17.6; Range: 4.0-10.0; Abnormal: Above high normal; Units: K/mm3; Status: F Test: RED BLOOD COUNT; Value: 4.71; Range: 4.30-6.10; Units: M/mm3; Status: F Test: HEMOGLOBIN; Value: 13.5; Range: 14.0-18.0; Abnormal: Below low normal; Units: g/dl; Status: F Test: HEMATOCRIT; Value: 40.0; Range: 42.0-52.0; Abnormal: Below low normal; Units: %; Status: F Test: MEAN CORPUSCULAR VOLUME; Value: 85.0; Range: 80.0-96.0; Units: fl; Status: F Test: MEAN CORPUSCULAR HEMOGLOBIN; Value: 28.6; Range: 27.0-33.0; Units: pg; Status: F Test: MEAN CORPUSCULAR HGB CONC; Value: 33.6; Range: 32.0-36.5; Units: g/dl; Status: F Test: RED CELL DISTRIBUTION WIDTH; Value: 12.9; Range: 11.5-14.5; Units: %; Status: F Test: PLATELET COUNT, AUTOMATED; Value: 201; Range: 150-450; Units: k/mm3; Status: F Lab Order: MED Profile; [facility] 09:25 Test: GLUCOSE, FASTING; Value: 317; Range: 70-105; Abnormal: Above high normal; Units: MG/DL; Status: F Test: BLOOD UREA NITROGEN; Value: 15; Range: 7-18; Units: MG/DL; Status: F Test: CREATININE FOR GFR; Value: 1.27; Range: 0.70-1.30; Units: MG/DL; Status: F Test: GLOMERULAR FILTRATION RATE; Value: > 60.0; Range: >56; Status: F Test: SODIUM LEVEL; Value: 135; Range: 136-145; Abnormal: Below low normal; Units: MEQ/L; Status: F Test: POTASSIUM SERUM; Value: 4.1; Range: 3.5-5.1; Units: MEQ/L; Status: F Test: CHLORIDE LEVEL; Value: 99; Range: 98-107; Units: MEQ/L; Status: F Test: CARBON DIOXIDE LEVEL; Value: 24; Range: 21-32; Units: MEQ/L; Status: F Test: ANION GAP; Value: 12; Range: 8-16; Units: MEQ/L; Status: F Test: CALCIUM LEVEL; Value: 8.9; Range: 8.5-10.1; Units: MG/DL; Status: F Test Note: ; Units are mL/min/1.73 m2 Chronic Kidney Disease Staging per NKF: Stage I & II GFR >=60 Normal to Mildly Decreased Stage III GFR 30-59 Moderately Decreased Stage IV GFR 15-29 Severely Decreased Stage V GFR <15 Very Little GFR Left ESRD GFR <15 on DATA GOVERNANCE CONSULTANT Lab Order: Pt & Aptt; [facility]05/09[facility]16 09:25 Test: PROTHROMBIN TIME; Value: 12.0; Range: 12.3-14.5; Abnormal: Below low normal; Units: SECONDS; Status: F Test: INR; Value: 0.88; Status: F Test: PARTIAL THROMBOPLASTIN TIME; Value: 29.6; Range: 26.6-37.1; Units: SECONDS; Status: F Test Note: ; THERAPUTIC HUMAN INR VALUES INDICATIONS NORMAL RANGES PROPHYLAXIS/TREATMENT OF: VENOUS THROMBOSIS 2.0-3.0 PULMONARY EMBOLISM 2.0-3.0 PREVENTION OF SYSTEMIC EMBOLISM FROM: TISSUE HEART VALVES 2.0-3.0 ACUTE MYOCARDIAL INFARCTION 2.0-3.0 VALVULAR HEART DISEASE 2.0-3.0 ATRIAL FIBRILLATION 2.0-3.0 MECHANICAL VALVES(HIGH RISK) 2.5-3.5 RECURRENT MYOCARDIAL INFARCTION 2.5-3.5 Outcome: 10:02 ER care complete, transfer ordered by Provider. pc 10:27 Discharge Assessment: Patient awake, alert and oriented x 3. No cognitive and/or mlb1 functional deficits noted. Patient verbalized understanding of disposition instructions. patient administered narcotics - yes. Patient was admitted to the hospital or transferred to another facility. The following High Risk Discharge criteria are identified: None. Transferred to [facility]. by EMS ground [facility] ambulance report to accompanying personnel Marcellus Rodriguez. Transferred Transfer form completed. Condition: stable. No special radiology studies were completed. Property :Personal belongings accompany Pt. 10:33 Patient left the ED. mlb1 Signatures: Amadou Mason MD MD James Ordaz RN RN mlb1 Cande AnneRN RN ck1 Hailee Carroll mm15 Camryn East jp5 Alice Peterson RN jo3 Corrections: (The following items were deleted from the chart) 07:53 07:37 Presenting complaint: Patient states: Worsening pain in right leg since ck1 yesterday, no known injury. Reports having "four stents" in that leg, feels like a knot in right inner thigh ck1 08:04 08:01 Cardiovascular: Pulses mlb1 mlb1 Chart Complete MTDD
== END 2016-05-09 10:33 | disposition short-term general hospital (02) ==
LOC: M ED 07:32
DX: I74.3 Embolism and thrombosis of arteries of the lower extremities (principal); E78.00 Pure hypercholesterolemia, unspecified; I10 Essential (primary) hypertension; E11.42 Type 2 diabetes mellitus with diabetic polyneuropathy; I73.9 Peripheral vascular disease, unspecified; F17.210 Nicotine dependence, cigarettes, uncomplicated; Z79.84 Long term (current) use of oral hypoglycemic drugs; Z79.899 Other long term (current) drug therapy; Z88.0 Allergy status to penicillin; Z95.820 Peripheral vascular angioplasty status with implants and grafts

== ENCOUNTER 2018-04-13 14:19 | Inpatient (IN) | payer MEDICARE ==
[~2018-04-13] VITALS: Ht 182.9 cm; Wt 104.6 kg
[~2018-04-13 14:19] MED LIST changes: +LEVA1TAB2 PO; -LEVA500T PO
[2018-04-13] MEDS ORDERED: LANTINJ4 SC (14:41)
[2018-04-13] MEDS ORDERED: PRAV40TA2 PO (14:41)
[2018-04-13] MEDS ORDERED: CLOP75TA2 PO (14:41)
[2018-04-13] MEDS ORDERED: GABA600T4 PO (14:41)
[2018-04-13] MEDS ORDERED: COLA100C5 PO (14:41)
[2018-04-13] MEDS ORDERED: DILUENT IV ONE (15:00)
[2018-04-13] MEDS ORDERED: LevoFLOXacin IV 750 MG in APPROPRIATE DILUENT 1 EA IV ONE (15:00)
[2018-04-13] MEDS ORDERED: ACETAMINOPHEN 325 MG TAB PO ONE (15:00)
[2018-04-13] MEDS ORDERED: NS IV ONE (15:00)
[2018-04-13] MEDS ORDERED: ONDANSETRON 4MG/2ML VIAL (J2405) IV ONE (15:15)
--- NOTE | 2018-04-13 15:17 | REP ---
Portable chest x-ray: Single view. History: Sepsis. Shock. Findings: Sitting chest x-ray shows clear well inflated lungs and sharp pleural angles. Heart is not enlarged. Pulmonary vasculature is not increased. No significant bony abnormality. Impression: No active disease. Electronically Signed by Matthew Cardoso MD 04/13/2018 03:09 P
--- NOTE | 2018-04-13 16:29 | REP ---
Duplex extremity venous ultrasound: Right lower extremity. History: Right lower extremity pain and swelling. History of previous thrombosis. Findings: There is some soft tissue edema. A 3.7 x 1.5 x 3.9 cm lymph node and a 3.3 x 1.5 x 2.3 cm lymph node are seen in the right groin consistent with mild lymphadenopathy. Incidental note is made of occlusion of the right common femoral artery. A right-sided bypass graft is noted to be patent. The deep veins are anechoic and fully compressible from the groin to the popliteal fossa in the right lower extremity. Color flow imaging is homogeneous. Spectral Doppler interrogation demonstrates intact respiratory variation in flow and normal manual augmentation of flow. There is no evidence of deep vein thrombosis. Impression: Soft tissue edema and two hypertrophied right groin lymph nodes. Common femoral artery occlusion - patent arterial bypass graft noted. Otherwise negative right lower extremity duplex venous ultrasound. No evidence of deep vein thrombosis. Electronically Signed by Matthew Cardoso MD 04/13/2018 06:14 P
[2018-04-13] MEDS ORDERED: MORPHINE 4 MG/ML 1ML VIAL/SYRINGE (J2270) IV ONE ×2 (16:45→18:15)
[2018-04-13 17:18] LABS: CENTRAL VEN BASE EXCESS 2.4
[2018-04-13 17:21] LABS: BASO # 0.1 10^3/uL (0.0-0.2); BASO % 0.3 % (0.0-1.0); HEMOGLOBIN 11.3 g/dl (13.5-17.5); LYMPH # 0.5 10^3/uL (1.5-4.5); LYMPH % 1.5 % (24.0-44.0); MEAN CORPUSCULAR HEMOGLOBIN 28.2 pg (27.0-33.0); MEAN CORPUSCULAR HGB CONC 33.2 g/dl (32.0-36.5); MEAN CORPUSCULAR VOLUME 84.8 fl (80.0-96.0); MONO # 1.4 10^3/uL (0.0-0.8); MONO % 3.9 % (0.0-5.0); NEUTROPHILS % 93.2 % (36.0-66.0); PLATELET COUNT, AUTOMATED 295 10^3/uL (150-450); RED BLOOD COUNT 4.01 10^6/uL (4.30-6.10)
[2018-04-13 17:26] LABS: NEUTROPHILS # 34.2 10^3/uL (1.8-7.7); WHITE BLOOD COUNT 36.6 10^3/uL (4.0-10.0)
[2018-04-13 17:38] LABS: INR 1.21; PROTHROMBIN TIME 15.4 SECONDS (12.1-14.4)
[2018-04-13 17:39] LABS: PARTIAL THROMBOPLASTIN TIME 33.2 SECONDS (25.4-37.6)
--- NOTE | 2018-04-13 17:44 | REP ---
PORTABLE CHEST, ONE VIEW: CENTRAL LINE PLACEMENT: COMPARISON: 04/13/2018 The lungs are clear. The heart is normal in size. The pulmonary vasculature is normal in appearance. A central line is present in the left internal jugular vein. IMPRESSION: The patient is status-post central line placement in the left internal jugular vein. Electronically Signed by Fredo Choudhury MD 04/13/2018 05:53 P
[2018-04-13 17:52] LABS: INFLUENZA A AMPLIFICATION NEGATIVE (NEGATIVE); INFLUENZA B AMPLIFICATION NEGATIVE (NEGATIVE)
[2018-04-13 17:58] LABS: ALBUMIN 2.4 GM/DL (3.2-5.2); BILIRUBIN,DIRECT 0.2 MG/DL (0.0-0.2); BILIRUBIN,TOTAL 0.6 MG/DL (0.2-1.0); C REACTIVE PROTEIN QUANTITATIV 30.2 MG/DL (0.00-0.30); CALCIUM LEVEL 7.3 MG/DL (8.5-10.1); CREATININE FOR GFR 3.27 MG/DL (0.70-1.30); GLOMERULAR FILTRATION RATE 21.1 (>56); MB/CK RELATIVE INDEX 0.25 (< OR =4); TOTAL PROTEIN 5.8 GM/DL (6.4-8.2); TROPONIN I 0.02 NG/ML (< 0.10)
[2018-04-13] MEDS ORDERED: FISH1000 PO (18:24)
[2018-04-13] MEDS ORDERED: VITMTA PO (18:25)
[2018-04-13] MEDS ORDERED: CEFEPIME HCL 2 GM in D5W MINI-BAG PLUS 50 ML IV STA (18:58)
--- NOTE | 2018-04-13 19:03 | ECGEPIP ---
Stationary ECG Study [facility] - ED Test Date: 2018-04-13 Pat Name: NISH MCDONALD Department: Room: - Gender: M Bowstring Maker: : 1965 Requested By: MIRTHA CHIN Order Number: [id number] Reading MD: Eric Waite Measurements Intervals [place] Rate: 110 P: -2 MS: 116 QRS: 64 QRSD: 105 T: 26 QT: 327 QTc: 443 Interpretive Statements SINUS TACHYCARDIA WITH SHORT MS INTERVAL POSSIBLE LEFT ATRIAL ENLARGEMENT POSSIBLE RIGHT VENTRICULAR CONDUCTION DELAY ABNORMAL RHYTHM ECG NONSPECIFIC ST [facility] CW 08/24/[address] [facility] Electronically Signed On 04-13-2018 19:02:38 EST by Eric Waite
--- NOTE | 2018-04-13 19:07 | REP ---
Right foot series: Four views: History: Rule out osteomyelitis. No comparison views. Findings: Four views of the right foot demonstrate that the patient is status post transmetatarsal amputations of the distal end of the second, third and fourth metatarsals. The first and fifth toes have been amputated through the proximal phalanges. There is a small bone density distal to the second metatarsal as well. There is soft tissue swelling and irregularity over the forefoot stump. There is a marked soft tissue swelling in the forefoot. No definite soft tissue gas. There is periosteal reaction at the transmetatarsal amputation site of the second digit. Soft tissue swelling is seen along the medial aspect of the ankle as well. Impression: Diffuse marked soft tissue swelling of the forefoot and ankle region. Irregularity of the soft tissues of the forefoot stump. Status post amputation of all five digits of the forefoot as above. No definite acute bony erosive change. No soft tissue gas seen. Electronically Signed by Matthew Cardoso MD 04/13/2018 07:53 P
--- NOTE | 2018-04-13 19:32 | HPE ---
DATE OF ADMISSION: 04/13/2018 This is a 52-year-old male with a past medical history of hypertension, diabetes, hyperlipidemia, history of peripheral artery disease status-post right fem-pop bypass. History of recent TMA 3 weeks ago in [place] who presents to the emergency room with right leg swelling over the last 3 days with subjective feeling of fevers, aches and chills. In the emergency room he was found to have a 35,000 white count and temperature of 102. He was started on sepsis protocol. Patient was also started on IV Levaquin and had a vascular ultrasound done which showed a patent common femoral artery with no DVT. Patient will be admitted for further management. PAST MEDICAL HISTORY: Hypertension, diabetes, hyperlipidemia, history of peripheral artery disease status-post fem-pop bypass of the right leg, history of recent right TMA done 3 weeks ago in [place], chronic kidney disease 3A. ALLERGIES: Penicillin. FAMILY HISTORY: Noncontributory. SOCIAL HISTORY: Patient denies tobacco, alcohol, illicit drugs. MEDICATIONS AT HOME: Plavix 75 mg orally daily, Colace 100 mg orally daily, fish oil 1,000 mg orally daily, gabapentin 600 mg orally three times a day, Insulin glargine 25 units subcu in the morning, multivitamin 1 tab orally daily, pravastatin 40 mg orally daily. REVIEW OF SYSTEMS: Negative for all 10 major systems except what was mentioned in the history of present illness. VITALS: Blood pressure 125/59, heart rate 104 and regular, respiratory rate 35, temperature 102.4, oxygen saturation 97% on room air. Head is atraumatic normocephalic. Neck is supple with no JVD. Lungs are clear to auscultation, S1, S2 audible. No murmurs are appreciated. Abdomen was soft and positive bowel sounds. There is +3 pedal edema in the right foot and +1 pedal edema in the left. Skin examination, foul smelling opened surgical wound with also foul smelling discharge noted in the right surgical TMA area. No dorsal pedal pulse appreciated bilaterally. Neurologic examination, patient is awake, alert, and oriented times three. LABS: WBC 36.6, hemoglobin 11.3, hematocrit 34, platelets are 295,000. Chemistry: Show a sodium 132, potassium 4.0, chloride 96, CO2 25, anion gap 11, BUN 34, creatinine 3.27, creatinine 3.27, lactic acid 1.5, glucose 161, troponin 0.02, creatinine kinase 1,187, INR 1.21, PT 15.4, PTT 33.2, Influenza A and B are negative. IMPRESSION: 1. Sepsis. 2. Cellulitis of the right leg. 3. Infected right foot surgical wound. 4. Rhabdomyolysis. 5. Acute kidney injury and chronic kidney disease. PLAN: Patient is to be admitted to the progressive care unit. We will continue the patient on intravenous fluids NS 150 mL an hour. Keep him nothing by mouth for now. I spoke with Dr. Manjarrez podiatry who will see the patient in the morning and likely flush the wound in the OR. I am going to start the patient on IV cefepime although he has a penicillin allergy, it is the best drug of choice and the patient is critically ill. We will give him cefepime 2 grams IV daily renal dosing and vancomycin 1 gram daily for a trough between 15 and 20. Blood cultures have been sent and we will follow those results. The acute kidney injury is most likely from prerenal azotemia. His baseline creatinine is approximately 1.4. We will follow BUN and creatinine trends. His rhabdomyolysis is mild and we will monitor CK trends as well and continue IV fluids for this. I will hold his Plavix just for today although it takes 7 days for it to leave the system. I will still hold it for the OR tomorrow, otherwise continue all the preadmission medications and we will continue following the care of the patient in the progressive care unit.
[2018-04-13] MEDS ORDERED: GLUCAGON FOR INJ 1 MG VIAL (J1610) SC PRN (20:00)
[2018-04-13] MEDS ORDERED: DEXTROSE 50% 50 ML SYRINGE IV PRN (20:00)
[2018-04-13] MEDS ORDERED: GLUCOSE 4 GM CHEW TABLET PO PRN (20:00)
[2018-04-13] MEDS: MORPHINE 4 MG/ML 1ML VIAL/SYRINGE (J2270) IV PRN (20:26)
[2018-04-13 20:41] VITALS: BP 138/63
[2018-04-13] MEDS ORDERED: HumaLOG INSULIN (NovoLOG) PER UNIT SC SCH (21:00)
--- NOTE | 2018-04-13 21:15 | PHACANCOPD ---
PHARMACY VANCOMYCIN DOSING Pt Demographics Demographics Patient Age:52 , Weight:84.550 , Gender: male Adjusted Body Weight Events Past 24 Hours Events Past 24 Hours: NO: Dialysis, Diuretic Therapy, Change in CrCl, Fever, Elevation in WBC, Pending Diagnostics, Pending Procedures, Other Vancomycin Vancomycin indication: SSSI RLE Vancomycin Target Ranges: 10-20 mcg/ml Vancomycin Load Y/N: Yes Load Dose Date Time Vancomycin Load Dose: 1.5GM Date: 04/13/18 Time: 22:00 Vancomycin Dose Date: 04/14/18. Current Vancomycin Dose: [1GM IV Q24H (09:00)] Intermittent Dosing?: No Labs Labs Laboratory Tests 04/13/18 17:07 Red Blood Count 4.01 L, Mean Corpuscular Volume 84.8, Mean Corpuscular Hemoglobin 28.2, Mean Corpuscular Hemoglobin Concent 33.2, Red Cell Distribution Width 14.4, Neutrophils (%) (Auto) 93.2 H, Lymphocytes (%) (Auto) 1.5 L, Monocytes (%) (Auto) 3.9, Eosinophils (%) (Auto) 0.0, Basophils (%) (Auto) 0.3, Neutrophils # (Auto) 34.2 H, Lymphocytes # (Auto) 0.5 L, Monocytes # (Auto) 1.4 H, Eosinophils # (Auto) 0.0, Basophils # (Auto) 0.1 Micro Microbiology 04/13/18 Blood Culture, Received Pending 04/13/18 Blood Culture, Received Pending Creatinine Clearance Date:04/13/18. Creatinine Clearance: [<30 ml/min]. Assessment and Plan Maintaining Current Dose?: Yes Reason for dose change: No Dose Change Pharmacist Note Pharmacist Note Date: 04/13/18. PharmD note: VANCO 1.5GM LD 22:00 FOLLOWED BY 1GM IV DAILY @09:00 A VANCO TROUGH WILL BE ORDERED WHEN AT [facility] Apr 13, 2018 21:15
[2018-04-13] MEDS ORDERED: oxyCODONE 5MG TAB PO ONE (22:00)
[2018-04-13] MEDS ORDERED: VANCOMYCIN HCL 1,000 MG, VIAL MATE ADAPTER 1 EACH in D5W 250 ML IV ONE (22:00)
[2018-04-13] MEDS: GABAPENTIN 300 MG CAP PO SCH (22:09)
[2018-04-13] MEDS: ACETAMINOPHEN TAB 650MG DOSE (2X325MG) PO PRN (22:10)
[2018-04-13] MEDS: NS 1,000 ML IV SCH (22:11)
[2018-04-13] MEDS ORDERED: VANCOMYCIN HCL 500 MG in D5W MINI-BAG PLUS 100 ML IV ONE (23:00)
[2018-04-14] VITALS: BP 107/61
[2018-04-14] MEDS ORDERED: NAPROXEN 250 MG TAB PO ONE
[2018-04-14 04:00] VITALS: BP 102/56
[2018-04-14] MEDS: ACETAMINOPHEN TAB 650MG DOSE (2X325MG) PO PRN (05:09)
[2018-04-14 05:50] LABS: HEMATOCRIT 29.5 % (42.0-52.0); HEMOGLOBIN 9.5 g/dl (13.5-17.5); MEAN CORPUSCULAR HEMOGLOBIN 27.7 pg (27.0-33.0); MEAN CORPUSCULAR HGB CONC 32.2 g/dl (32.0-36.5); PLATELET COUNT, AUTOMATED 238 10^3/uL (150-450); RED BLOOD COUNT 3.43 10^6/uL (4.30-6.10)
[2018-04-14 05:56] LABS: WHITE BLOOD COUNT 32.9 10^3/uL (4.0-10.0)
[2018-04-14] MEDS ORDERED: HEPARIN SOD (PORCINE) 5000 UNITS/ML VIAL SC SCH (06:00)
[2018-04-14 06:14] LABS: CALCIUM LEVEL 6.6 MG/DL (8.5-10.1); CREATININE FOR GFR 4.01 MG/DL (0.70-1.30); GLOMERULAR FILTRATION RATE 16.7 (>56); POTASSIUM SERUM 4.2 MEQ/L (3.5-5.1)
[2018-04-14] MEDS: NS 1,000 ML IV SCH (06:20)
[2018-04-14 07:29] LABS: BASOPHILS 1 % (0-4); LYMPHOCYTES 2 % (16-52); MONOCYTES 1 % (0-8); NEUTROPHILS 93 % (35-75); PLATELET ESTIMATE NORMAL (NORMAL)
[2018-04-14] MEDS: HumaLOG INSULIN (NovoLOG) PER UNIT SC SCH ×2 (07:30→12:00)
[2018-04-14 08:00] VITALS: BP 97/63
--- NOTE | 2018-04-14 08:02 | PHACANCOPD ---
PHARMACY VANCOMYCIN DOSING Pt Demographics Demographics Patient Age:52 , Weight:104.560 , Gender: male Adjusted Body Weight Vancomycin Vancomycin indication: SSSI RLE Vancomycin Target Ranges: 10-20 mcg/ml Vancomycin Load Y/N: Yes Load Dose Date Time Vancomycin Load Dose: 1.5GM Date: 04/13/18 Time: 22:00 Vancomycin Dose Date: 04/14/18. Current Vancomycin Dose: [1GM IV Q24H (09:00)] Intermittent Dosing?: No Labs Micro Microbiology 04/13/18 Blood Culture, Received Pending 04/13/18 Blood Culture, Received Pending Creatinine Clearance Date:04/13/18. Creatinine Clearance: [<30 ml/min]. Assessment and Plan Maintaining Current Dose?: Yes Reason for dose change: No Dose Change Pharmacist Note Pharmacist Note 04/14/18: Day#2 IV vancomycin therapy. Scr is increased at 4.01 today from 3.27 yesterday, and BUN is elevated from 34 yesterday to 41 today. A random vanco mycin level was obtained this morning to ensure that the patient was not supratherapeutic prior to this mornings scheduled dose. The random level resulted at 17mcg/ml, so we will maintain the patient on his current regimen of 1g IV Q24H to start this morning at 0900 and continue to monitor his renal function closely. We will schedule further levels accordingly. Date: 04/13/18. PharmD note: VANCO 1.5GM LD 22:00 FOLLOWED BY 1GM IV DAILY @0900 A VANCO TROUGH WILL BE ORDERED WHEN AT [facility] Apr 14, 2018 08:02
[2018-04-14] MEDS ORDERED: VANCOMYCIN HCL 1,000 MG, VIAL MATE ADAPTER 1 EACH in D5W 250 ML IV SCH (09:00)
[2018-04-14] MEDS ORDERED: MULTIVITAMINS/MINERALS THERAP 1 TAB PO SCH (09:00)
[2018-04-14] MEDS ORDERED: DOCUSATE SODIUM 100 MG CAP PO SCH (09:00)
[2018-04-14] MEDS ORDERED: OMEGA-3 1000MG CAPSULE PO SCH (09:00)
[2018-04-14] MEDS ORDERED: PRAVASTATIN 20 MG TAB PO SCH (09:00)
[2018-04-14] MEDS: MORPHINE 4 MG/ML 1ML VIAL/SYRINGE (J2270) IV PRN ×3 (09:32→15:05)
[2018-04-14] MEDS: GABAPENTIN 300 MG CAP PO SCH (09:32)
[2018-04-14 12:00] VITALS: BP 111/69
--- NOTE | 2018-04-14 13:33 | CR ---
DATE OF CONSULTATION: 04/14/2018 CHIEF COMPLAINT: The patient is seen today for evaluation of his right foot. 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 The patient also has a history of partial left hallux amputation. The patient states that initially he did well. However, his foot and leg started to swell and become painful 3 weeks ago. He went to the emergency room and was admitted. PAST SURGICAL HISTORY: Hypertension. Diabetes. Hyperlipidemia. History of peripheral artery disease. Chronic kidney disease. ALLERGIES: To PENICILLIN. MEDICATIONS AT HOME: - Plavix 75 mg - Colace - gabapentin - insulin - pravastatin Evaluation of the patient's foot reveals an opened wound on the right foot measuring approximately 5 cm. This wound does extend several millimeters deep. This was cultured today. There is an odor from the wound. However, there was no gross purulence in the wound, and this was probed with a soft cotton-tip applicator. No abscess was noted dorsally or plantarly. Culture from the wound was obtained with tissue from the deep wound for aerobic and anaerobic culture. There is significant swelling noted of the patient's right lower extremity. The patient had a venous duplex study of the right lower extremity showing no evidence of deep vein thrombosis. The patient's x-rays were reviewed, which reveal soft tissue swelling but no soft tissue gas or evidence of active osteomyelitis. There has been a partial amputation of the heads of the 2nd, 3rd, and 4th metatarsals. The patient has had a previous partial hallux amputation and apparent amputation of the 5th toe. LABORATORY STUDIES: Were reviewed revealing a white count of 32.9, on admission 36.6. The patient's C-reactive protein at 30.2, BUN of 41, creatinine of 4, GFR 16, total creatinine kinase at 881. Evaluation of the patient's right lower leg reveals swelling from the knee distally. The surgical site where the femoral popliteal bypass was performed is well healed. Some tenderness at that location. Significant tenderness, however, is noted of the lateral compartment with a large ecchymosis present over the proximal aspect of the peroneal muscle valley. There is a blister in that location, which is presently closed, however, quite tender to palpation. ASSESSMENT: Is right foot infection without abscess formation, right foot swelling, tenderness of the lateral compartment. Would recommend further evaluation. This is outside of my scope of practice, and the attending physician was notified of possible workup, including an MRI referral to orthopedics or infectious disease. The patient's questions were answered. Thank you for this consultation.
--- NOTE | 2018-04-14 17:16 | DS.PDOC ---
Discharge Summary General Date of Admission Apr 13, 2018 at 18:42 Date of Discharge 04/14/18 Specialist/Consultants Involve Dr. Manjarrez of Podiatry, Dr. Herrera of Orthopedic Surgery Discharge Summary PROCEDURES PERFORMED DURING STAY: None. ADMITTING/DISCHARGE DIAGNOSES: Infected right foot, surgical wound Cellulitis of the right leg Sepsis Acute kidney injury superimposed on chronic kidney disease Leukocytosis COMPLICATIONS/CHIEF COMPLAINT: Cellulitis Of Right Leg/Infected Surgical Wound. HISTORY OF PRESENT ILLNESS: . 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 The patient stated that he started to feel fevers, chills, and worsening right leg swelling with pain over the last 3 days. He was admitted to the hospitalist service for further evaluation and management. Upon seeing the patient for the first time this morning, it was evident that the patient's right lower extremity had significant swelling. Evaluation of the patient's foot revealed an open wound on the right foot. However, there was no purulent discharge noted. However, the patient did have significant swelling with some tenderness on the lateral compartment of the extremity extending from the knee distally. The patient did have a palpable pulse, and he was able to move the extremity. However, given the concern of the extent of the swelling, the tension in the skin, and recent vascular intervention there was certainly a concern for this progressing into compartment syndrome. I did also discuss this with podiatry this morning, who has agreed with the same. I did place a call to Dr. Herrera of Orthopedic surgery this morning and discussed the case with him. It was recommended that the patient be transferred back to [facility] for further intervention with the patient's vascular surgeon Dr. Gould, who performed the aforementioned bypass and transmetatarsal amputation just 3 weeks ago. Upon discussing the case, Dr. Gould has graciously accepted the patient in transfer for further evaluation. I did discuss the emergent need for the patient to be transferred with Mr. Broussard at the bedside, as a progression of his lower extremity swelling can result in compartment syndrome with a possible loss of his lower extremity, and including but not limited to worsening sepsis, and possible . Patient also noted to be in acute on chronic renal failure, and he will need a Nephrology evaluation upon transfer as well. He has verbalized understanding of the same, and all questions were answered to his satisfaction. At this time, the patient is agreeable to be transferred for a higher level of care and for continuity with his vascular surgeon. DISCHARGE MEDICATIONS: Please see below. ALLERGIES: Please see below. PHYSICAL EXAMINATION ON DISCHARGE: VITAL SIGNS: Please see below. GENERAL: Awake, alert, oriented HEENT: Normocephalic, atraumatic NECK: No JVD CARDIOVASCULAR EXAMINATION: Normal rate, normal S1, S2 RESPIRATORY EXAMINATION: Clear to auscultation bilaterally ABDOMINAL EXAMINATION: Soft, nontender, nondistended EXTREMITIES: Patient noted to have right transmetatarsal amputation. Open wound noted to be measuring approximately 4.5 cm, however no discharge noted. Patient noted to have 2+ pitting edema of the right foot. Erythema noted to be spreading proximally towards the knee. Patient does have intact range of motion of ankle joint on the right. He does appear to have red coloration of the extremity and superficial capillary refill of the proximal foot/distal leg. Sensation intact. LABORATORY DATA: Please see below. IMAGING: Duplex extremity venous ultrasound: Right lower extremity. History: Right lower extremity pain and swelling. History of previous thrombosis. Findings: There is some soft tissue edema. A 3.7 x 1.5 x 3.9 cm lymph node and a 3.3 x 1.5 x 2.3 cm lymph node are seen in the right groin consistent with mild lymphadenopathy. Incidental note is made of occlusion of the right common femoral artery. A right-sided bypass graft is noted to be patent. The deep veins are anechoic and fully compressible from the groin to the popliteal fossa in the right lower extremity. Color flow imaging is homogeneous. Spectral Doppler interrogation demonstrates intact respiratory variation in flow and normal manual augmentation of flow. There is no evidence of deep vein thrombosis. Impression: Soft tissue edema and two hypertrophied right groin lymph nodes. Common femoral artery occlusion - patent arterial bypass graft noted. Otherwise negative right lower extremity duplex venous ultrasound. No evidence of deep vein thrombosis. Portable chest x-ray: Single view. History: Sepsis. Shock. Findings: Sitting chest x-ray shows clear well inflated lungs and sharp pleural angles. Heart is not enlarged. Pulmonary vasculature is not increased. No significant bony abnormality. Impression: No active disease. PORTABLE CHEST, ONE VIEW: CENTRAL LINE PLACEMENT: COMPARISON: 04/13/2018 The lungs are clear. The heart is normal in size. The pulmonary vasculature is normal in appearance. A central line is present in the left internal jugular vein. IMPRESSION: The patient is status-post central line placement in the left internal jugular vein. Right foot series: Four views: History: Rule out osteomyelitis. No comparison views. Findings: Four views of the right foot demonstrate that the patient is status post transmetatarsal amputations of the distal end of the second, third and fourth metatarsals. The first and fifth toes have been amputated through the proximal phalanges. There is a small bone density distal to the second metatarsal as well. There is soft tissue swelling and irregularity over the forefoot stump. There is a marked soft tissue swelling in the forefoot. No definite soft tissue gas. There is periosteal reaction at the transmetatarsal amputation site of the second digit. Soft tissue swelling is seen along the medial aspect of the ankle as well. Impression: Diffuse marked soft tissue swelling of the forefoot and ankle region. Irregularity of the soft tissues of the forefoot stump. Status post amputation of all five digits of the forefoot as above. No definite acute bony erosive change. No soft tissue gas seen. PROGNOSIS: Guarded ACTIVITY: Bedrest DIET: Renal diet DISCHARGE PLAN: DISPOSITION: er To Acute Hosp. DISCHARGE INSTRUCTIONS: Follow-up with vascular surgery, nephrology consultation at . DISCHARGE CONDITION: Hemodynamically Stable. TIME SPENT ON DISCHARGE: Greater than 30 minutes. Vital Signs/I&Os Vital Signs Date Time Temp Pulse Resp B/P (MAP) Pulse Ox O2 Delivery O2 Flow Rate FiO2 04/14/18 15:05 20 04/14/18 12:00 98.4 84 111/69 (83) 98 Room Air I&O- Last 24 Hours up to 6 AM 04/14/18 06:00 Intake Total 1580 ml Output Total 0 ml Balance 1580 ml Laboratory Data Labs 24H Laboratory Tests 2 04/13/18 21:39: Bedside Glucose (Misc Panel) 95 04/14/18 05:22: White Blood Count 32.9*H, Red Blood Count 3.43L, Hemoglobin 9.5L, Hematocrit 29.5L, Mean Corpuscular Volume 86.0, Mean Corpuscular Hemoglobin 27.7, Mean Corpuscular Hemoglobin Concent 32.2, Red Cell Distribution Width 14.6H, Platelet Count 238, Neutrophils # (Auto) , Nucleated Red Blood Cells % (auto) 0.0, Neutrophils 93H, Band Neutrophils 3, Lymphocytes (Manual) 2L, Monocytes (Manual) 1, Basophils (Manual) 1, Platelet Estimate NORMAL, Red Blood Cell Morphology N ORMAL, Anion Gap 11, Glomerular Filtration Rate 16.7L, Blood Urea Nitrogen 41H, Creatinine 4.01H, Sodium Level 134L, Potassium Level 4.2, Chloride Level 101, Carbon Dioxide Level 22, Calcium Level 6.6L, Total Creatine Kinase 881H, Random Vancomycin Level 17.0 04/14/18 06:57: Bedside Glucose (Misc Panel) 112H 04/14/18 12:08: Bedside Glucose (Misc Panel) 88 CBC/BMP Laboratory Tests 04/14/18 05:22 Red Blood Count 3.43 L, Mean Corpuscular Volume 86.0, Mean Corpuscular Hemoglobin 27.7, Mean Corpuscular Hemoglobin Concent 32.2, Red Cell Distribution Width 14.6 H, Neutrophils # (Auto) , Calcium Level 6.6 L FSBS Laboratory Tests Test 04/13/18 21:39 04/14/18 06:57 04/14/18 12:08 Range/Units Bedside Glucose (Misc Panel) 95 112 88 70-105 MG/DL Microbiology Microbiology 04/13/18 Blood Culture - Preliminary, Resulted No growth after 24 hours . All specim... 04/13/18 Blood Culture - Preliminary, Resulted No growth after 24 hours . All specim... 04/14/18 Wound Culture, Received Pending Discharge Medications Scheduled Docusate Sodium (Colace) 100 Mg Cap, 100 MG PO DAILY, (Reported) Fish Oil (Fish Oil) 1,000 Mg Cap, 1,000 MG PO DAILY, (Reported) Gabapentin (Gabapentin) 600 Mg Tab, 600 MG PO TID, (Reported) Multivitamins *[facility] STOCKED* (Thera M Plus *[facility] STOCKED*) 1 Tab Tab, 1 TAB PO DAILY, (Reported) Pravastatin Sod (Pravastatin Sodium) 40 Mg Tab, 40 MG PO DAILY, (Reported) Allergies Coded Allergies: Flu Virus Vaccine (Verified Allergy, Severe, STOPPED BREATHING, 04/13/18) PT STATES HE STOPPED BREATHING AND DAUGHTER GAVE HIM CPR. WAS SICK FOR 6 WEEKS. Penicillins (Verified Allergy, Intermediate, RASH, PRURITIS, HIVES, 04/13/18) ALL "CILLINS" per patient PAVITHRA MARIA MD Apr 14, 2018 17:16
[2018-04-14] MEDS ORDERED: CEFEPIME HCL 2 GM in D5W MINI-BAG PLUS 50 ML IV SCH (20:00)
== END 2018-04-14 15:15 | disposition short-term general hospital (02) | DRG 564 ==
LOC: M ED 14:19 → M ED INP 18:42 → M PCU 20:40
PROVIDERS: ADMIT Internal Medicine; ATTEND Internal Medicine
DX: T87.44 Infection of amputation stump, left lower extremity (principal); A41.9 Sepsis, unspecified organism; N17.9 Acute kidney failure, unspecified; L03.115 Cellulitis of right lower limb; M62.82 Rhabdomyolysis; N18.3 Chronic kidney disease, stage 3 (moderate); I12.9 Hypertensive chronic kidney disease with stage 1 through stage 4 chronic kidney disease, or unspecified chronic kidney disease; E11.51 Type 2 diabetes mellitus with diabetic peripheral angiopathy without gangrene; E78.5 Hyperlipidemia, unspecified; Z79.899 Other long term (current) drug therapy; Z88.0 Allergy status to penicillin; B95.5 Unspecified streptococcus as the cause of diseases classified elsewhere; Y83.8 Other surgical procedures as the cause of abnormal reaction of the patient, or of later complication, without mention of misadventure at the time of the procedure

== ENCOUNTER → 2019-11-02 | Outpatient (REF) | payer MEDICARE, OTHER ==
[~2019-11-02] MED LIST changes: +CLOP75TA2 PO; +COLA100C5 PO; +GABA600T4 PO; -GLIM2TAB PO; +GLIM2TAB4 PO; +LANTINJ4 SC; +METF-838 PO; -METF500T4 PO; +PRAV40TA2 PO; +VITMTA PO
[2019-12-18 06:42] LABS: PERCENT SATURATION 11.5 % (19.7-50.0)
== END ==
LOC: M LAB REF 07:57
PROVIDERS: ATTEND Nurse Practitioner Family
DX: D50.9 Iron deficiency anemia, unspecified (principal)

== ENCOUNTER → 2019-11-19 | Outpatient (CLI) | payer MEDICARE, OTHER ==
--- NOTE | 2019-12-17 16:28 | REP ---
CT ABDOMEN AND PELVIS WITHOUT CONTRAST COMPARISON: None. REASON FOR EXAM: Hematuria. FINDINGS: The lung bases are clear. The lack of intravenous contrast decreases the sensitivity of the exam. Limited evaluation of the solid intraabdominal organs show no gross abnormalities. There is cholelithiasis. There is marked pancreatic fatty infiltration and marked pancreatic atrophy. There are three possibly four tiny millimeter sized nonobstructing left nephroliths. There are three possibly four millimeter sized nonobstructing right nephroliths. There are no ureteroliths. There is no hydronephrosis or hydroureter. The abdominal aorta and paraaortic regions are within normal limits, although seen in a limited fashion. There are bilateral common iliac arterial stents. The bowel loops and their mesenteries are within normal limits. No free fluid or free air is seen. There is extensive abnormal air density within the urinary bladder with thickening of the urinary bladder lacey. This is difficult to evaluate without intravenous contrast administration. Bone window technique throughout the examination shows the osseous structures to be within normal limits for the patients age. There are spinal degenerative changes. IMPRESSION: * The urinary bladder is abnormal as described above. Cystitis with a gas producing organism is suspected and needs to be correlated clinically with appropriate follow-up. * There is evidence of a minimal, but nonpatent iliacus. * There is cholelithiasis. * Multiple bilateral nonobstructing nephroliths as described above. * A stat report was placed in this patients [facility] Cuff-Protect jacket at the time of this dictation describing the abnormal findings. [facility]
== END ==
LOC: M RAD 08:15
PROVIDERS: ATTEND Nurse Practitioner Family
DX: R31.29 Other microscopic hematuria (principal)

== ENCOUNTER → 2020-02-03 | Outpatient (REF) | payer MEDICARE, OTHER | LOC: M LAB REF 16:58 | PROVIDERS: ATTEND Nurse Practitioner Family | DX: N39.0 Urinary tract infection, site not specified (principal) ==

== ENCOUNTER → 2020-02-24 | Outpatient (REF) | payer MEDICARE, OTHER ==
[2020-02-24 18:04] LABS: APPEARANCE, URINE CLOUDY (CLEAR); BACTERIA, URINE AUTO 1+ (NEGATIVE); BILIRUBIN, URINE AUTO NEGATIVE (NEGATIVE); BLOOD, URINE BLOOD 1+ (NEGATIVE); COLOR, URINE YELLOW (YELLOW); GLUCOSE, URINE (UA) AUTO 2+ mg/dL (NEGATIVE); KETONE, URINE AUTO NEGATIVE (NEGATIVE); LEUKOCYTE ESTERASE, URINE AUTO 3+ (NEGATIVE); NITRITE, URINE AUTO NEGATIVE (NEGATIVE); PROTEIN, URINE AUTO 2+ mg/dL (NEGATIVE); RBC, URINE AUTO 34 /HPF (0-3); SPECIFIC GRAVITY URINE AUTO 1.008 (1.002-1.035); SQUAMOUS EPITHELIAL CELL UR AU 0 /HPF (0-6); UROBILINOGEN, URINE AUTO 0.2 mg/dL (0.0-2.0); WBC, URINE AUTO TNTC /HPF (0-3)
== END ==
LOC: M SMT 17:04
PROVIDERS: ATTEND Nurse Practitioner Women's Health
DX: N39.0 Urinary tract infection, site not specified (principal)
CPT/HCPCS: 81001; 87088; 87186; G0463

== ENCOUNTER → 2021-04-11 | Outpatient (REF) | payer MEDICARE, OTHER ==
[~2021-04-11] MED LIST changes: -LISI-538 PO; +LISI20TA33 PO
== END ==
LOC: M LAB REF 17:08
PROVIDERS: ATTEND Nurse Practitioner Family
DX: N18.4 Chronic kidney disease, stage 4 (severe) (principal)